=== PATIENT | female | born 1965 | race Caucasian/White ===

== ENCOUNTER 2020-02-11 12:37 | Observation (INO) ==
--- NOTE | 2020-02-11 13:36 | Emergency Department Note ---
Impression & Plan SOB (shortness of breath), Facial edema, Seroma after procedure, Hx of cervical spine surgery ED Provider Note NAME: GUSTAVO DEGROOT AGE: 54 SEX: F : 1965 ARRIVES VIA: Walk-In INFORMANT: [Patient][[facility]] ED PROVIDER(S): [Agapito Yang MD] CHIEF COMPLAINT: Lip swelling and pain HISTORY OF PRESENT ILLNESS: The patient is a 54-year-old female presents to the ER with about 24 hours if not longer of left upper lip swelling. The patient states that she noticed the lip swelling yesterday morning when she awoke. She has tried Benadryl without relief. The Benadryl makes her sleepy and kind of foggy. The patient states that the left upper lip is painful and sarmiento and the pain is a 7/10. She feels thirsty. She did have a cervical fusion surgery about 5 days ago. They did an anterior approach. The patient did notice an ulcer on her left upper inner lip. This is where she has the burning pain. There has been no fever, no cough or congestion. No shortness of breath. The patient states that she went to [facility] and was told that she had findings on plain x-ray concerning for a seroma or hematoma, she was referred to this ED. The patient states that she can swallow although it is difficult because of the pain from the surgery. She does admit that she is not eating and drinking enough. The lip swelling has not improved at all with the Benadryl. She has no history of anything similar. She thought her left face was slightly droopy as well. REVIEW OF SYSTEMS: See HPI for pertinent positives and negatives. A total of ten systems were reviewed and were otherwise negative. PMHx/PSHx: See Below SOCIAL HISTORY: See Below. PHYSICAL EXAM: GENERAL: Patient is in no acute distress. HEENT: No acute trauma, normocephalic atraumatic, mucous membranes dry, no nasal congestion, no scleral icterus. The patient's left upper lip is edematous and there is an ulcer on the inner side of this lip. She has poor dentition in general. There is no uvular edema, her airway seems patent. There is a subtle left facial droop but this appears to be from the edema itself. NECK: No stridor, no adenopathy, no meningismus, trachea is midline. She does have on a [place] J collar that she was able to remove. Her left anterior neck cervical incision looks to be healing well. There is some surrounding erythema consistent with what seems like a contact reaction from her procedure. LUNGS: Clear to auscultation bilaterally, no wheeze, no rhonchi, breath sounds equal. HEART: Mildly tachycardic, regular rhythm, no murmurs. ABDOMEN: Soft, nontender, bowel sounds positive, no hernias, no peritonitis. EXTREMITIES: No cyanosis or edema, full range of motion of all the joints without pain or difficulty, no signs for acute trauma. NEUROLOGIC: Oriented x 3, no acute motor or sensory deficits, no focal weakness. No extremity drift or cerebellar dysfunction. No speech slur. SKIN: No rash, no jaundice, no diaphoresis. DIFFERENTIAL DIAGNOSIS: Infection, dehydration, metabolic abnormality, hypo/hyperglycemia, stroke, TIA, seroma or hematoma, wound infection, electrolyte disturbance, anemia, hypoxia, cardiac sources, intracerebral event, toxicologic, neurologic, as well as other pathologies. EMERGENCY DEPARTMENT COURSE/PROCEDURES: ECG: Indication was shortness of breath. The EKG shows a normal sinus rhythm with a rate of 87. There is some baseline artifact. There is no ST elevation, no PVCs. QTC is 454. Continuous Cardiac Monitoring: An order was placed for continuous cardiac monitoring. The monitor shows a rate of 85 with normal sinus rhythm. MEDICAL DECISION MAKING: There is no leukocytosis or concerning anemia. There is a normal platelet count. No significant electrolyte abnormality or kidney failure. Alk phos somewhat elevated, the remaining liver enzymes are unremarkable. Chest film shows some potential atelectasis at the bases, no pneumonia, no CHF or pneumothorax. Brain CT shows no acute bleed or mass-effect. CT of the soft tissues of the neck does show a seroma/hematoma. Infection was questioned. There was no airway compromise. The patient on exam did have some left upper lip swelling. There was an ulcer on the underside of this lip. Her cervical incision looked to be healing without signs of infection. She was not wheezing, there was no stridor. She was not hypoxic or febrile. Patient was given IV saline for hydration. She is currently resting comfortably. I spoke to the patient's spinal surgeon about the findings on CT and about the patient's presentation. Hospitalization/observation was felt warranted. The patient may in fact require drainage of her seroma/hematoma. She was not felt safe for discharge given the facial edema. In short, I am not certain the facial edema is from her surgery. It is possible that she has a herpetic lesion on the underside of her lip causing the edema. Possibly, her symptoms are the result of both. The patient is aware of her findings, case management has been involved. Past Med/Surg History Medical History Anxiety Diverticular disease DJD (degenerative joint disease) GERD (gastroesophageal reflux disease) Hyperlipidemia Hypertension IBS (irritable bowel syndrome) Migraine Mitral valve prolapse mild MR directed centrally per 08/2019 ECHO Osteoarthritis Osteoporosis Primary biliary cirrhosis stage 1, follows with GI (Dr. Brenner/Yvette) Sciatic nerve pain Spinal stenosis SVT (supraventricular tachycardia) no recent issues/follows with cardiology (Dr. Starr) Surgical History Fusion of spine L4-S1 decompression/fusion: 08/11/14: Grade view 2, MAC#[address] 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 Beliefs That Will Affect Care: None Current Living Situation: Spouse Other Information That Helps Us Care for You: No Feels Safe at Home: Yes Safety Concerns: Feels Safe At This Time Smoking Status: Never smoker Second Hand Exposure: No ; Hx Alcohol Use: Yes Alcohol type: wine Hx Substance Use: No Allergies Allergies Allergy/AdvReac Type Severity Reaction Status Date / Time acetaminophen [From Percocet] Allergy Intermediate Rash Verified 02/11/20 14:52 dexamethasone Allergy Intermediate Hypertensio Verified 02/11/20 14:52 n oxycodone [From Percocet] Allergy Intermediate Rash Verified 02/11/20 14:52 metaxalone Allergy Mild Rash Verified 02/11/20 14:52 adhesive Allergy Unknown Itchy rash Verified 02/11/20 14:52 tetracycline Allergy Unknown Rash Verified 02/11/20 14:52 latex Allergy Rash Verified 02/11/20 14:52 pregabalin AdvReac Intermediate Hallucinati Verified 02/11/20 14:52 ons Home Meds Home Medications Medication Instructions Recorded Confirmed aspirin [Aspir-81] 81 mg PO PM 01/16/20 02/11/20 [id number] 1 cap PO Q6H PRN 01/16/20 02/11/20 [Fiorinal] dicyclomine 20 mg PO TID PRN 01/16/20 02/11/20 duloxetine [Cymbalta] 60 mg PO BID 01/16/20 02/11/20 lamotrigine [Lamictal] 200 mg PO BID 01/16/20 02/11/20 lorazepam [Ativan] 1 mg PO TID 01/16/20 02/11/20 methocarbamol 1,000 mg PO TID 01/16/20 02/11/20 pantoprazole [Protonix] 40 mg PO BID 01/16/20 02/11/20 pramipexole [Mirapex] 0.125 mg PO HS 01/16/20 02/11/20 ursodiol 300 mg PO QID 01/16/20 02/11/20 acetaminophen [Tylenol Extra 1,000 mg PO Q6H PRN 02/11/20 02/11/20 Strength] diphenhydramine HCl [Benadryl] 25 mg PO Q6H PRN 02/11/20 02/11/20 meclizine 12.5 mg PO TID PRN 02/11/20 02/11/20 nitroglycerin 0.4 mg SUBLINGUAL DIRECTED PRN 02/11/20 02/11/20 simvastatin 10 mg PO DAILY 02/11/20 02/11/20 Results & Data (ED) Vital Signs Vital Signs - 24 hr 02/11/20 12:40 02/11/20 13:48 02/11/20 16:00 Temperature 36.8 C Temperature Source Oral Pulse Rate 112 H Pulse Rate [Finger] 88 75 Respiratory Rate 18 16 18 Respiratory Depth Normal Blood Pressure 135/87 Blood Pressure [Right Arm] 116/73 144/91 H Blood Pressure Mean 103 Blood Pressure Mean [Right Arm] 87 108 Pulse Oximetry 97 96 97 Oxygen Delivery Method Room Air Room Air Room Air Sepsis Recent Fever Within 48 Hours No Sepsis New/Unexplained Change in Mental Status No Sepsis Action Taken by Nursing No Action Required Home Medications Current Medication List: was personally reviewed by me Laboratory Data Attestation: I reviewed the patient's lab results. Result diagrams: 02/11/20 13:50 02/11/20 13:50 Lab Results 02/11/20 02/11/20 Range/Units 13:50 13:50 WBC 9.82 (4.8-10.8) K/uL RBC 4.14 L (4.2-5.4) M/uL Hgb 12.7 (12.0-16.0) g/dL Hct 39.3 (37-47) % MCV 94.9 (80-100) fL MCH 30.7 (25-34) pg MCHC 32.3 (32-36) g/dL RDW Std Deviation 49.6 H (36.4-46.3) fL RDW Coeff of Ulisses 14.3 (11.5-14.5) % Plt Count 353 (130-400) K/uL MPV 9.6 (7.4-10.4) fL Immature Gran % (Auto) 0.4 % Neut % (Auto) 86.8 % Lymph % (Auto) 11.0 % Fountain % (Auto) 1.1 % Eos % (Auto) 0.5 % Baso % (Auto) 0.2 % Immature Gran # (Auto) 0.04 H (0.00-0.02) K/uL Neut # (Auto) 8.52 H (1.4-6.5) K/uL Lymph # (Auto) 1.08 L (1.2-3.4) K/uL Fountain # (Auto) 0.11 (0.11-0.59) K/uL Eos # (Auto) 0.05 (0-0.5) K/uL Baso # (Auto) 0.02 (0-0.2) K/uL Sodium 140 (136-145) mmol/L Potassium 3.5 (3.5-5.1) mmol/L Chloride 111 H (98-107) mmol/L Carbon Dioxide 21 (21-32) mmol/L Anion Gap 8.0 (3-11) BUN 18 (7-18) mg/dl Creatinine 1.11 (0.6-1.2) mg/dl Est Cr Clr Drug Dosing 67.9 ml/min Est GFR ( Amer) 64.7 Est GFR (Non-Af Amer) 55.9 BUN/Creatinine Ratio 16.0 (10-20) Glucose 123 H (70-99) mg/dl Calcium 9.2 (8.5-10.1) mg/dl Magnesium 2.4 (1.8-2.4) mg/dl Total Bilirubin 0.3 (0.2-1) mg/dl AST 16 (15-37) U/L ALT 32 (12-78) U/L Alkaline Phosphatase 253 H (45-117) U/L Total Protein 7.4 (6.4-8.2) gm/dl Albumin 3.5 (3.4-5.0) gm/dl Globulin 3.9 (2.5-4.0) gm/dl Albumin/Globulin Ratio 0.9 (0.9-2) Administered Medications Sodium Chloride (Nss 1000ml) 1,000 mls @ 50 mls/hr IV .Q20H WILLIAM Stop: 03/12/20 18:29 Last Admin: 02/11/20 18:41 Dose: 50 mls/hr Documented by: [id number] Ioversol (Optiray 320 100ml) 94 ml IV ONCE PRN PRN Reason: Interaction Checking Stop: 02/15/20 14:53 Last Admin: 02/11/20 14:55 Dose: 94 ml Documented by: [id number] Oxycodone HCl (Roxicodone Immediate Rel) 5 - 10 mg PO Q6H PRN PRN Reason: Pain Stop: 02/25/20 18:27 Last Admin: 02/11/20 18:47 Dose: 10 mg Documented by: [id number] Discontinued Medications Sodium Chloride (Nss 1000ml) 1,000 mls @ 999 mls/hr IV .Q1H1M WILLIAM Stop: 02/11/20 14:45 Last Infusion: 02/11/20 15:08 Dose: 0 mls/hr Documented by: [id number] Admin: 02/11/20 14:00 Dose: 999 mls/hr Documented by: [id number] Imaging Data Radiologist's Impression: XR chest 1V portable CLINICAL HISTORY: weakness COMPARISON STUDY: Chest radiograph July 27, 2014. FINDINGS: Anterior cervical spine fusion is incidentally noted. There is no pneumothorax or pleural effusion. Cardiac size is normal. Mediastinal contours are normal. There is suspected minimal left basilar airspace opacity. There may be minimal right basilar opacity. There is no lobar consolidation. IMPRESSION: Suspected mild bibasilar opacities which may reflect an infectious process or atelectasis. Radiographic follow up to ensure resolution is recommended. CT head/brain wo con CLINICAL HISTORY: Acute change in neurological status. Possible stroke. COMPARISON STUDY: No previous studies for comparison. TECHNIQUE: Axial CT of the brain is performed from the vertex to the skull base. IV contrast was not administered for this examination. A dose lowering technique was utilized adhering to the principles of ALARA. CT DOSE: 638.56 mGycm FINDINGS: No intra or extra-axial mass lesions are visualized. There is no CT evidence of acute cortical infarction. There is no evidence of midline shift. There is no acute hemorrhage. No calvarial fractures are visualized. There are patchy white matter hypodensities likely on a small vessel basis. There is no evidence of pathologic ventricular dilatation. There is opacification of a right posterior ethmoid air cell IMPRESSION: No acute intracranial findings CT soft tissue neck w con CT DOSE: 345.58 mGycm CLINICAL HISTORY: Neck pain status post recent surgery. Possible hematoma. TECHNIQUE: Helical images were acquired during intravenous administration of 94 cc of Optiray 320. A dose lowering technique was utilized adhering to the principles of ALARA. COMPARISON STUDY: None. FINDINGS: There is respiratory motion artifact. There are no apical masses. No thyroid masses are visualized. No salivary gland masses are visualized. There are multiple cervical lymph nodes present. The largest is located in the right paratracheal region measuring 9 mm. These nodes are statistically reactive There are postsurgical changes within the cervical spine at the C4-C7 level. Th ere is a prevertebral fluid collection at the surgical level, and extending cephalad to the C2 level. This contains small air bubbles. On the right, the fluid collection extends laterally to abut the posterior thyroid. The fluid collection is retroesophageal. This collection is likely postsurgical. Infection cannot be excluded and this needs to be correlated clinically. Evaluation of this collection is somewhat limited due to metallic artifact from the spinal surgery There is no evidence of airway compromise. IMPRESSION: 1. C4-C7 postsurgical changes with secondary artifact due to metallic hardware 2. Prevertebral fluid collection at the surgical level and extending cephalad to the C2 level. There is also asymmetric extension of the fluid collection to the right of midline to abut the posterior aspect of the right thyroid. This collection is likely postsurgical. The collection contains small air bubbles, and infection cannot be excluded. This will need to be correlated clinically. 3. No evidence of airway compromise Blood Pressure Blood Pressure Findings: Elevated blood pressure Blood Pressure Disposition: further management by hospitalist Discharge Plan Visit Data *Final* Discharge Date/Time: 02/11/20 17:23 Chief Complaint: Abnormal Labs/Diagnostic Testing Stated Complaint: JOYCELYN JACI SENT,ABNORMALXRAY ED Provider: Agapito Yang Discharge Problem: SOB (shortness of breath), Facial edema, Seroma after procedure, Hx of cervical spine surgery Patient Disposition: Admitted As Inpatient Condition: Good Discharge Instructions Interventions: ED Discharge Assessment Last Done: 02/11/20 17:23
[2020-02-11] MEDS ORDERED: SODIUM CHLORIDE 0.9% 1000ML 1,000 ML IV SCH (13:45)
--- NOTE | 2020-02-11 13:51 | XRay Report ---
XR chest 1V portable CLINICAL HISTORY: weakness COMPARISON STUDY: Chest radiograph July 27, 2014. FINDINGS: Anterior cervical spine fusion is incidentally noted. There is no pneumothorax or pleural e ffusion. Cardiac size is normal. Mediastinal contours are normal. There is suspected minimal left bas ilar airspace opacity. There may be minimal right basilar opacity. There is no lobar consolidation. IMPRESSION: Suspected mild bibasilar opacities which may reflect an infectious process or atelectasi s. Radiographic follow up to ensure resolution is recommended. ACT 112: Negative or not required by law. Electronically signed by: Scott Thrasher M.D. 02/11/2020 1:50 PM
[2020-02-11 14:07] LABS: Basophils # (auto) 0.02 K/uL (0-0.2); Basophils % (auto) 0.2 %; Eosinophils # (auto) 0.05 K/uL (0-0.5); Eosinophils % (auto) 0.5 %; Hematocrit (blood only) 39.3 % (37-47); Hemoglobin 12.7 g/dL (12.0-16.0); Immature Granulocytes # (auto) 0.04 K/uL (0.00-0.02); Immature Granulocytes % (auto) 0.4 %; Lymphocytes # (auto) 1.08 K/uL (1.2-3.4); Mean Corpuscular Hemoglobin 30.7 pg (25-34); Mean Corpuscular Hgb Conc 32.3 g/dL (32-36); Mean Corpuscular Volume 94.9 fL (80-100); Mean Platelet Volume 9.6 fL (7.4-10.4); Monocytes # (auto) 0.11 K/uL (0.11-0.59); Monocytes % (auto) 1.1 %; Neutrophils # (auto) 8.52 K/uL (1.4-6.5); Neutrophils % (auto) 86.8 %; Platelet Count 353 K/uL (130-400); RDW Coefficient of Variation 14.3 % (11.5-14.5); RDW Standard Deviation 49.6 fL (36.4-46.3); Red Blood Count 4.14 M/uL (4.2-5.4); White Blood Count 9.82 K/uL (4.8-10.8)
[2020-02-11 14:26] LABS: Albumin Level 3.5 gm/dl (3.4-5.0); Calcium 9.2 mg/dl (8.5-10.1); Creatinine Clr Calc Pharmacy 67.9 ml/min; Est GFR (African American) 64.7; Est GFR (Non-African American) 55.9; Magnesium 2.4 mg/dl (1.8-2.4); Potassium 3.5 mmol/L (3.5-5.1)
[2020-02-11 14:29] LABS: Albumin Globulin Ratio 0.9 (0.9-2); Bilirubin,Total 0.3 mg/dl (0.2-1); Globulin 3.9 gm/dl (2.5-4.0); Total Protein 7.4 gm/dl (6.4-8.2)
[2020-02-11] MEDS ORDERED: IOVERSOL 100ml IV PRN (14:54)
--- NOTE | 2020-02-11 15:09 | CT Scan Report ---
CT head/brain wo con CLINICAL HISTORY: Acute change in neurological status. Possible stroke. COMPARISON STUDY: No previous studies for comparison. TECHNIQUE: Axial CT of the brain is performed from the vertex to the skull base. IV contrast was not administered for this examination. A dose lowering technique was utilized adhering to the principles of ALARA. CT DOSE: 638.56 mGycm FINDINGS: No intra or extra-axial mass lesions are visualized. There is no CT evidence of acute cortical infarc tion. There is no evidence of midline shift. There is no acute hemorrhage. No calvarial fractures ar e visualized. There are patchy white matter hypodensities likely on a small vessel basis. There is no evidence of pathologic ventricular dilatation. There is opacification of a right posterior ethmoid air cell IMPRESSION: No acute intracranial findings ACT 112: Negative or not required by law. Electronically signed by: Eliceo Shirley M.D. 02/11/2020 3:08 PM
--- NOTE | 2020-02-11 15:17 | CT Scan Report ---
CT soft tissue neck w con CT DOSE: 345.58 mGycm CLINICAL HISTORY: Neck pain status post recent surgery. Possible hematoma. TECHNIQUE: Helical images were acquired during intravenous administration of 94 cc of Optiray 320. A dose lowering technique was utilized adhering to the principles of ALARA. COMPARISON STUDY: None. FINDINGS: There is respiratory motion artifact. There are no apical masses. No thyroid masses are visualized. No salivary gland masses are visualized. There are multiple cervical lymph nodes present. The largest is located in the right paratracheal reg ion measuring 9 mm. These nodes are statistically reactive There are postsurgical changes within the cervical spine at the C4-C7 level. There is a prevertebral fluid collection at the surgical level, and extending cephalad to the C2 level. This contains small a ir bubbles. On the right, the fluid collection extends laterally to abut the posterior thyroid. The f luid collection is retroesophageal. This collection is likely postsurgical. Infection cannot be exclu ded and this needs to be correlated clinically. Evaluation of this collection is somewhat limited due to metallic artifact from the spinal surgery There is no evidence of airway compromise. IMPRESSION: 1. C4-C7 postsurgical changes with secondary artifact due to metallic hardware 2. Prevertebral fluid collection at the surgical level and extending cephalad to the C2 level. There is also asymmetric extension of the fluid collection to the right of midline to abut the posterior as pect of the right thyroid. This collection is likely postsurgical. The collection contains small air bubbles, and infection cannot be excluded. This will need to be correlated clinically. 3. No evidence of airway compromise ACT 112: Negative or not required by law. Electronically signed by: Eliceo Shirley M.D. 02/11/2020 3:16 PM
[2020-02-11] MEDS ORDERED: ONDANSETRON INJ 2 MG/ML 2 ML VIAL IV PRN (18:26)
[2020-02-11] MEDS ORDERED: BUTALBITAL/ASPIRIN/CAFFEINE 1 TAB TAB PO PRN (18:30)
[2020-02-11] MEDS ORDERED: DICYCLOMINE HCL 10 MG CAP PO PRN (18:30)
[2020-02-11] MEDS ORDERED: NITROGLYCERIN 0.6 MG/1 TAB 100 TAB BTL SL PRN (18:30)
[2020-02-11] MEDS: SODIUM CHLORIDE 0.9% 1000ML 1,000 ML IV SCH (18:41)
[2020-02-11] MEDS: OXYCODONE HCL IR 5 MG TAB (IMMEDIATE RELEASE) PO PRN (18:47)
[2020-02-11] MEDS ORDERED: NITROGLYCERIN SL 0.4 MG/TAB TAB SL PRN (19:15)
[2020-02-11] MEDS: DULOXETINE HCL 60 MG CAP PO SCH (21:13)
[2020-02-11] MEDS: lamoTRIgine 100 MG TAB PO SCH (21:13)
[2020-02-11] MEDS: ursodioL 300 MG CAP PO SCH (21:13)
[2020-02-11] MEDS: METHOCARBAMOL 500 MG TABLET PO SCH (21:13)
[2020-02-11] MEDS: SIMVASTATIN 10 MG TAB PO SCH (21:13)
[2020-02-11] MEDS: LORazepam 1 MG TAB PO SCH (21:13)
[2020-02-11] MEDS: PRAMIPEXOLE DIHYDROCHLO 0.25 MG TAB PO SCH (21:14)
[2020-02-11] MEDS: HYDROmorphone INJ 0.5 MG/0.5 ML SYR IV PRN (23:42)
[2020-02-12] MEDS: OXYCODONE HCL IR 5 MG TAB (IMMEDIATE RELEASE) PO PRN ×3 (02:05→19:10)
[2020-02-12] MEDS: HYDROmorphone INJ 0.5 MG/0.5 ML SYR IV PRN (07:09)
[2020-02-12] MEDS: LORazepam 1 MG TAB PO SCH ×3 (08:24→20:06)
[2020-02-12] MEDS: DULOXETINE HCL 60 MG CAP PO SCH ×2 (08:25→20:06)
[2020-02-12] MEDS: ursodioL 300 MG CAP PO SCH ×4 (08:25→20:06)
[2020-02-12] MEDS: lamoTRIgine 100 MG TAB PO SCH ×2 (08:25→20:06)
[2020-02-12] MEDS: METHOCARBAMOL 500 MG TABLET PO SCH ×3 (08:25→20:06)
[2020-02-12] MEDS ORDERED: DEXAMETHASONE SOD PHOSPHATE 8 MG in SYRINGE 0 ML IV ONE (08:30)
--- NOTE | 2020-02-12 13:49 | History & Physical Report ---
Date of Service February 12, 2020 Assessment & Plan (1) Hx of cervical spine surgery: At this time we will go with the liquid diet. I feel we can continue observation and avoid repeat surgery. I will have her continue on IV Decadron every 8 hours. Present on Admission?: Yes History of Present Illness Chief Complaint: Difficulty swallowing Primary Care Provider: Nicola Carorll, This is a 54-year-old female known to me who is status post revision anterior cervical decompression and fusion. She presents the emergency room with marked difficulty swallowing. This began several days after surgery. At this time she denies any shortness of breath. States that her arm symptoms are markedly impr edwardo. She does have significant soreness with swallowing. She is able to control liquids. Allergies Allergy/AdvReac Type Severity Reaction Status Date / Time acetaminophen [From Percocet] Allergy Intermediate Rash Verified 02/11/20 14:52 dexamethasone Allergy Intermediate Hypertensio Verified 02/11/20 14:52 n oxycodone [From Percocet] Allergy Intermediate Rash Verified 02/11/20 14:52 metaxalone Allergy Mild Rash Verified 02/11/20 14:52 adhesive Allergy Unknown Itchy rash Verified 02/11/20 14:52 tetracycline Allergy Unknown Rash Verified 02/11/20 14:52 latex Allergy Rash Verified 02/11/20 14:52 pregabalin AdvReac Intermediate Hallucinati Verified 02/11/20 14:52 ons Home Medications Home Medications Medication Instructions Recorded Confirmed Type aspirin [Aspir-81] 81 mg PO PM 01/16/20 02/11/20 History wurwwdxrif-[id number] 1 cap PO Q6H PRN 01/16/20 02/11/20 History [Fiorinal] dicyclomine 20 mg PO TID PRN 01/16/20 02/11/20 History duloxetine [Cymbalta] 60 mg PO BID 01/16/20 02/11/20 History lamotrigine [Lamictal] 200 mg PO BID 01/16/20 02/11/20 History lorazepam [Ativan] 1 mg PO TID 01/16/20 02/11/20 History methocarbamol 1,000 mg PO TID 01/16/20 02/11/20 History pantoprazole [Protonix] 40 mg PO BID 01/16/20 02/11/20 History pramipexole [Mirapex] 0.125 mg PO HS 01/16/20 02/11/20 History ursodiol 300 mg PO QID 01/16/20 02/11/20 History acetaminophen [Tylenol Extra 1,000 mg PO Q6H PRN 02/11/20 02/11/20 History Strength] diphenhydramine HCl [Benadryl] 25 mg PO Q6H PRN 02/11/20 02/11/20 History meclizine 12.5 mg PO TID PRN 02/11/20 02/11/20 History nitroglycerin 0.4 mg SUBLINGUAL DIRECTED PRN 02/11/20 02/11/20 History simvastatin 10 mg PO DAILY 02/11/20 02/11/20 History Past Med/Surg History Medical History Anxiety Diverticular disease DJD (degenerative joint disease) GERD (gastroesophageal reflux disease) Hyperlipidemia Hypertension IBS (irritable bowel syndrome) Migraine Mitral valve prolapse mild MR directed centrally per 08/2019 ECHO Osteoarthritis Osteoporosis Primary biliary cirrhosis stage 1, follows with GI (Dr. Brenner/Yvette) Sciatic nerve pain Spinal stenosis SVT (supraventricular tachycardia) no recent issues/follows with cardiology (Dr. 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 Her neck is supple there is no evidence of swelling. Is nontender to palpation. She has excellent strength testing the upper extremities. Results & Data Vital Signs (Past 12 Hours) Vital Signs Temp Pulse Resp BP Pulse Ox 02/12/20 06:56 36.8 C 73 16 121/77 98 Code Status & VTE Plan VTE Prophylaxis Plan VTE Prophylaxis will be ordered: Yes
[2020-02-12] MEDS: SODIUM CHLORIDE 0.9% 1000ML 1,000 ML IV SCH (14:25)
[2020-02-12] MEDS: DEXAMETHASONE SOD PHOSPHATE 8 MG in SYRINGE 0 ML IV SCH ×2 (14:26→22:37)
--- NOTE | 2020-02-12 19:13 | Electrocardiogram Report ---
Test Reason : Blood Pressure : / mmHG Vent. Rate : 087 BPM Atrial Rate : 087 BPM P-R Int : 140 ms QRS Dur : 078 ms QT Int : 378 ms P-R-T Axes : 038 009 -10 degrees QTc Int : 454 ms Normal sinus rhythm Nonspecific T wave abnormality Abnormal ECG When compared with ECG of 27-JUL-2014 09:21, Vent. rate has increased BY 32 BPM Questionable change in QRS axis Inverted T waves have replaced nonspecific T wave abnormality in Inferior leads QT has lengthened Confirmed by Price Hodges ([id number]) on 02/12/2020 7:12:55 PM Referred By: REFERRED SELF Confirmed By:Price Hodges
[2020-02-12] MEDS: SIMVASTATIN 10 MG TAB PO SCH (20:06)
[2020-02-12] MEDS: PRAMIPEXOLE DIHYDROCHLO 0.25 MG TAB PO SCH (20:06)
[2020-02-13] MEDS: OXYCODONE HCL IR 5 MG TAB (IMMEDIATE RELEASE) PO PRN ×2 (03:02→09:14)
[2020-02-13] MEDS: DEXAMETHASONE SOD PHOSPHATE 8 MG in SYRINGE 0 ML IV SCH ×2 (06:16→13:32)
[2020-02-13] MEDS: DULOXETINE HCL 60 MG CAP PO SCH (09:08)
[2020-02-13] MEDS: ursodioL 300 MG CAP PO SCH ×2 (09:08→13:31)
[2020-02-13] MEDS: lamoTRIgine 100 MG TAB PO SCH (09:08)
[2020-02-13] MEDS: METHOCARBAMOL 500 MG TABLET PO SCH ×2 (09:09→13:32)
[2020-02-13] MEDS: LORazepam 1 MG TAB PO SCH ×2 (09:14→13:32)
[2020-02-13] MEDS: SODIUM CHLORIDE 0.9% 1000ML 1,000 ML IV SCH (09:15)
--- NOTE | 2020-02-13 12:28 | Discharge Summary ---
Date of Service February 13, 2020 Admission HPI Per Admitting Provider This is a 54-year-old female known to me who is status post revision anterior cervical decompression and fusion. She presents the emergency room with marked difficulty swallowing. This began several days after surgery. At this time she denies any shortness of breath. States that her arm symptoms are markedly improved. She does have significant soreness with swallowing. She is able to control liquids. Principal Diagnosis Status post cervical fusion with postop seroma Discharge Data Allergies Allergy/AdvReac Type Severity Reaction Status Date / Time acetaminophen [From Percocet] Allergy Intermediate Rash Verified 02/11/20 14:52 dexamethasone Allergy Intermediate Hypertensio Verified 02/11/20 14:52 n oxycodone [From Percocet] Allergy Intermediate Rash Verified 02/11/20 14:52 metaxalone Allergy Mild Rash Verified 02/11/20 14:52 adhesive Allergy Unknown Itchy rash Verified 02/11/20 14:52 tetracycline Allergy Unknown Rash Verified 02/11/20 14:52 latex Allergy Rash Verified 02/11/20 14:52 pregabalin AdvReac Intermediate Hallucinati Verified 02/11/20 14:52 ons Consultations 02/11/20 15:41 ED Decision to Admit Stat Ordered Studies 02/11/20 13:33 CT soft tissue neck w con Stat 02/11/20 13:36 CT head/brain wo con Stat Hospital Course (1) Herniation of cervical intervertebral disc with radiculopathy: Patient presents with difficulty swallowing was admitted to the hospital for observation. She tolerated IV Decadron every 8 hours and had marked improvement of her swallowing and pain. Arm symptoms are improved. Functions are improved. On exam she has asked strength testing supple neck Total Time Total Time Spent Total Time Spent (In Minutes): 20 minutes Discharge Plan Discharge Items Patient Disposition: Home - Self-Care Reason For Visit: CERVICAL SEROMA Discharge Diagnosis: Cervical seroma Condition on Discharge: Good Activity: As commented below Non-emergency contact: Primary Care Provider Call non-emergency contact if: you have any medication questions Follow-up/Referrals: Nicola Carroll DO [Primary Care Provider] - Diet: Regular Addtl Attending Provider Instructions: ACTIVITY RECOMMENDATIONS: SELF CARE INSTRUCTIONS AFTER CERVICAL FUSIONS 1. No smoking. Smoking drastically decreases the chance of a solid fusion. 2. No bending, lifting more than 5 pounds, or twisting (roll like a log when turning in bed). 3. You may shower 3 days after surgery. Thoroughly dry wound. Do not soak in the tub. 4. Cervical collar: Must be worn at all times including sleeping. You may remove the brace only to bath, eat and if you are sitting in a recliner. 5. Please walk as much as you can for exercise. Gradually increase the distance that you walk as your endurance increases. SPECIAL CARE INSTRUCTIONS: VERY IMPORTANT TO READ AND REVIEW A. Do not take any anti-inflammatory medications (i.e. Indocin, Advil, Aspirin, Naprosyn, Aleve, Motrin, etc.) as these may inhibit the chance of a solid fusion. Tylenol is okay to take. B. Your surgical incision has been closed with a cosmetic suture under the skin that will dissolve in about 6 weeks. In 14 days, you can use a pair of clean scissors and cut the suture that is left outside of the skin at the ends of your incision. C. Complications are uncommon, but please contact us if you have any signs or symptoms of: 1. wound infection (fever higher than 102.5 degrees F, redness, separation of wound, drainage, or increasing pain from the incision) 2. blood clots in legs (pain, swelling, redness and warmth in legs) 3. urinary tract infection (fever higher than 102.5 degrees, burning upon urination or increased frequency of urination) 4. nerve problems (inability to walk on your toes or heels, numbness, loss of bowel or bladder control) 5. any other symptoms that concern you. D. Please call the office at if you have any concerns or questions about your operation or recovery. MANAGING PAIN AFTER SPINAL SURGERY 1. Narcotic medication is intended for short-term use and will be provided for surgical pain. Surgical pain usually lasts for a period of 4-6 weeks. Narcotic medication includes Percocet, Vicodin, Darvocet, Tylenol #3 or Lortab. 2. Longer-term pain is more appropriately treated with non-narcotic medication such as Tylenol ES. 3. Muscle spasm is not appropriately treated with narcotics. Muscle relaxers such as Soma, Flexeril or Skelaxin can be used along with Tylenol ES. 4. Remember that we all live with some "aches and pains". This is not unusual or uncommon after an injury or as we get older. 5. We will provide appropriate medication within the normal guidelines of their prescribed use. We will also be very cautious and aware of potential abuse and extended duration of patients' medication needs. 6. Please allow 2-3 days to process refills. Prescriptions will not be mailed but must be picked up at the office. FOLLOW UP VISIT: Keep your scheduled follow-up appointment. Any questions, please call the office at . Pending Studies at Discharge: No Stand-Alone Forms: [facility], Smoking Cessation Medications and DC Order Prescriptions: New methylprednisolone [Medrol (Vinny)] 4 mg tablets,dose pack 4 mg PO DAILY Qty: 21 RF: 0 Continued methocarbamol 500 mg Tablet 1,000 mg PO TID RF: 0 lamotrigine [Lamictal] 200 mg Tablet 200 mg PO BID RF: 0 aspirin [Aspir-81] 81 mg Tablet,Delayed Release (Dr/Ec) 81 mg PO PM RF: 0 dicyclomine 20 mg Tablet 20 mg PO TID PRN (Reason: Abdominal Pain) RF: 0 pantoprazole [Protonix] 40 mg Tablet,Delayed Release (Dr/Ec) 40 mg PO BID RF: 0 pramipexole [Mirapex] 0.125 mg Tablet 0.125 mg PO HS RF: 0 lorazepam [Ativan] 1 mg Tablet 1 mg PO TID RF: 0 duloxetine [Cymbalta] 60 mg Capsule,Delayed Release(Dr/Ec) 60 mg PO BID RF: 0 [id number]-gozmdnqv [Fiorinal] 50-325-40 mg Capsule 1 cap PO Q6H PRN (Reason: Migraine Headache) RF: 0 ursodiol 300 mg Capsule 300 mg PO QID RF: 0 simvastatin 10 mg tablet 10 mg PO DAILY RF: 0 acetaminophen [Tylenol Extra Strength] 500 mg Tablet 1,000 mg PO Q6H PRN (Reason: Pain) RF: 0 meclizine 25 mg tablet 12.5 mg PO TID PRN (Reason: Dizziness) RF: 0 diphenhydramine HCl [Benadryl] 25 mg Capsule 25 mg PO Q6H PRN (Reason: Allergic Reaction) RF: 0 nitroglycerin 0.4 mg Tablet, Sublingual 0.4 mg sublingual DIRECTED PRN (Reason: Chest Pain) RF: 0 Discharge Orders: Discharge Order (Routine); Ordered 02/13/20 Ordered By: Nicola Spaulding Admission Data Admit Date/Time: 02/11/20 16:45 Attending Provider: Nicola Spaulding Admit Provider: Nicola Spaulding Primary Care Provider: Nicola Carroll Other Providers: Nicola Spaulding
== END 2020-02-13 14:05 | disposition home or self-care (01) ==
LOC: ED 12:37 → 3E 16:45 → INTOOBSV 16:45 → 3E 17:23

== ENCOUNTER 2020-11-01 06:01 | Inpatient (IN) ==
--- NOTE | 2020-10-27 14:12 | Anesthesiology Consultation ---
Date of Service October 27, 2020 Assessment & Plan (1) Encounter for pre-operative examination: Cardiology visit 09/29/2020: "Clinically patient is not having any symptoms to suggest ongoing clinical angina and her chest discomfort is very much atypical most probably noncardiac/nonischemic in origin-continue current care. Blood pressures adequately controlled will continue same medications and close clinical monitoring. GONZALEZ is likely multifactorial, there is no clinical collin dence of fluid overload to suggest heart failure and so will continue same medications and close clinical monitoring." Chart Review Chart Review: Acceptable Risk for Surgery and Patient seen in Pre Admission Testing Teaching & Discussion Instructed NPO after midnight before surgery, except medications with 15 cc of water. Medication instructions provided according to the PAT guidelines. History Surgery Operation Date: 11/01/20 07:45 Proposed Procedures p L3-4 Decompression Fusion, L4-S1 Hardware Removal Spinal Cord Monitoring - Nicola Spaulding DO Height/Weight Height: 5 ft 6.5 in Weight: 88.451 kg Allergies Allergy/AdvReac Type Severity Reaction Status Date / Time acetaminophen [From Percocet] Allergy Intermediate Rash Verified 10/05/20 09:48 dexamethasone Allergy Intermediate Hypertensio Verified 10/05/20 09:48 n oxycodone [From Percocet] Allergy Intermediate Rash Verified 10/05/20 09:48 metaxalone Allergy Mild Rash Verified 10/05/20 09:48 adhesive Allergy Unknown Itchy rash Verified 10/05/20 09:48 tetracycline Allergy Unknown Rash Verified 10/05/20 09:48 latex Allergy Rash Verified 10/05/20 09:48 pregabalin AdvReac Intermediate Hallucinati Verified 10/05/20 09:48 ons Medications Home Medications Medication Instructions Recorded Confirmed Last Taken aspirin [Aspir-81] 81 mg PO PM 01/16/20 10/27/20 02/10/20 [id number]-[id number] 1 cap PO Q6H PRN 01/16/20 10/27/20 Unknown [Fiorinal] dicyclomine 20 mg PO TID PRN 01/16/20 10/27/20 02/11/20 duloxetine [Cymbalta] 60 mg PO BID 01/16/20 10/27/20 02/11/20 lamotrigine [Lamictal] 200 mg PO BID 01/16/20 10/27/20 02/11/20 lorazepam [Ativan] 1 mg PO TID 01/16/20 10/27/20 02/11/20 methocarbamol 1,000 mg PO TID 01/16/20 10/27/20 02/11/20 pantoprazole [Protonix] 40 mg PO BID 01/16/20 10/27/20 02/11/20 pramipexole [Mirapex] 0.125 mg PO HS 01/16/20 10/27/20 02/10/20 ursodiol 300 mg PO QID 01/16/20 10/27/20 02/11/20 acetaminophen [Tylenol Extra 1,000 mg PO Q6H PRN 02/11/20 10/27/20 02/10/20 Strength] 1000 mg diphenhydramine HCl [Benadryl] 25 mg PO Q6H PRN 02/11/20 10/27/20 02/11/20 50 mg meclizine 12.5 mg PO TID PRN 02/11/20 10/27/20 Unknown nitroglycerin 0.4 mg SUBLINGUAL DIRECTED PRN 02/11/20 10/27/20 Unknown ibuprofen 600 mg PO TID 08/23/20 10/27/20 Unknown metoprolol tartrate 12.5 mg PO BID 08/23/20 10/27/20 Unknown sumatriptan succinate [Imitrex 6 mg SUBCUT DAILY PRN 08/23/20 10/27/20 Unknown STATdose Pen] Past Medical History Medical History Anxiety > also very nervous about up coming spinal fusion 11/01 Diverticular disease DJD (degenerative joint disease) GERD (gastroesophageal reflux disease) History of surgical site infection AFTER NECK SURGERY FEBRUARY 2020> RESOLVED Hyperlipidemia Hypertension IBS (irritable bowel syndrome) Migraine Mitral regurgitation Mild MR, jet directed centrally per 08/2019 echo Nausea and vomiting after administration of anesthetic agent Osteoarthritis Osteoporosis Primary biliary cirrhosis stage 1, follows with GI (Dr. Brenner/Yvette) Sciatic nerve pain Seroma after procedure FEW DAYS AFTER NECK SUREGERY IN FEBRUARY 2020 Spinal stenosis SVT (supraventricular tachycardia) no recent issues/follows with cardiology (Dr. Starr) Exercise / Class Metabolic Activity II 4-5 Yardwork/Stairs/Walk up hill Past Family History Family History Father Diabetes Daughter Diabetes Sister Diabetes Brother Diabetes Past Surgical History Surgical History Fusion of spine L4-S1 decompression/fusion: 08/11/14: Grade view 2, MAC#3 at [facility] H/O cervical discectomy ROM IS LIMITED History of appendectomy History of cholecystectomy History of colonoscopy History of dilatation and curettage History of endoscopic sinus surgery x4 History of esophagogastroduodenoscopy (EGD) History of hysterectomy History of tooth extraction recently in Sep 2020 Past Anesthesia History No Family Hx of Anesthesia Complications (other than remote vague h/o father having a "reaction" once with anesthesia) Pt reports remote hx of issue with ESS in -- was not told to stop her Lasix and had pulmonary complications r/t this. Significant anxiety with surgeries. History of PONV No Hx of Motion Sickness and History of PONV Social History Smoking Status: Never smoker Hx Alcohol Use: Yes Alcohol type: wine alcohol intake frequency: holidays/special occasions only Hx Substance Use: No substance use type: does not use Review of Systems Pt denies any recent chest pain, shortness of breath, cough, fever, URI, or uncontrolled acid reflux. +fatigue, chronic. +palpitations, rare. Physical Exam Vital Signs BP: 92/60, asymptomatic. P: 59bpm SPO2: 96% RA T: 97.7 F R: 16 ENMT Mouth: no dental restorations, no chipped teeth and no loose teeth Thyromental Distance: > or= 3.5 Finger Breadths (3.5) Mallampati Class: III Neck normal visual inspection and + limited neck extension Respiratory normal respiratory effort, lungs clear to auscultation Cardiovascular RRR, no murmur, no edema Testing Laboratory Results SEE LABS FROM 09/14/20 [facility]. Other Testing EKG 09/29/20 SR @ 72bpm with low voltage, possible pulmonary disease pattern. Chest X-Ray Date: 09/14/20 Findings: + NAD Echocardiogram Date: 08/11/19 EF: 60% Normal ejection fraction. Grade 1 diastolic dysfunction. Normal RV size and function. Normal atria. Mild mitral regurgitation. The mitral valve is thickened. Mild tricuspid regurgitation. Mildly increased PASP. Normal pulmonic valve. Physiologic pulmonic regurgitation. Normal aorta.
[~2020-11-01 06:01] MED LIST: ACETAMINOPHEN 500 MG TAB PO SCH; CeleBREX 200 MG CAP PO SCH; GABAPENTIN 600 MG DOSE PO SCH; LR 15ML/HR IV SCH; ceFAZolin 2000MG 2,000 MG/15 ML SYR IV SCH
[2020-11-01] MEDS ORDERED: BACITRACIN INJ 50,000 UNIT VIAL ONE (06:54)
[2020-11-01] MEDS ORDERED: BUPIVACAINE/EPINEPHRINE 0.5% MPF 1:200,000 30 ML VIAL ONE (06:54)
[2020-11-01] MEDS ORDERED: ONDANSETRON INJ 2 MG/ML 2 ML VIAL IV PRN ×2 (07:07→11:27)
[2020-11-01] MEDS ORDERED: PROMETHAZINE HCL 6.25 MG in SODIUM CHLORIDE 0.9% 50 ML IV PRN (07:07)
[2020-11-01] MEDS ORDERED: ePHEDrine sulfate 50 MG/ML AMP IV PRN (07:07)
[2020-11-01] MEDS ORDERED: ATROPINE SULFATE 0.1 MG/ML 10ML SYR IV PRN (07:07)
[2020-11-01] MEDS ORDERED: DEXAMETHASONE SOD INJ 4 MG/ML VIAL ONE (07:09)
[2020-11-01] MEDS ORDERED: SUCCINYLCHOLINE 100MG/5ML SYR IV ONE (07:09)
[2020-11-01] MEDS ORDERED: ONDANSETRON INJ 2 MG/ML 2 ML VIAL ONE (07:09)
[2020-11-01] MEDS ORDERED: PROPOFOL IV EMULSION 10 MG/ML 20 ML VIAL IV ONE (07:09)
[2020-11-01] MEDS ORDERED: LIDOCAINE HCL 2% 2 ML VIAL/AMP(20MG/ML) INFIL ONE (07:09)
[2020-11-01] MEDS ORDERED: ROCURONIUM BROMIDE 10 MG/ML 5 ML VIAL IV ONE ×6 (07:09→09:59)
[2020-11-01] MEDS ORDERED: MIDAZOLAM HCL 1 MG/ML 2ML VIAL ONE (07:09)
[2020-11-01] MEDS ORDERED: fentaNYL citrate 100 MCG/2 ML VIAL ONE ×2 (07:10→09:35)
--- NOTE | 2020-11-01 07:39 | History & Physical Bridge Note ---
Date of Service November 01, 2020 History & Physical Bridge Note I have examined the patient, reviewed the History & Physical and in the interval since the performance of the History & Physical I have noted the following changes of clinical significance: no changes noted
--- NOTE | 2020-11-01 07:40 | History & Physical Report ---
Date of Service November 01, 2020 Assessment & Plan (1) Neurogenic claudication due to lumbar spinal stenosis: Admission and Anticipated Discharge Date Admission Date: L3-L4 decompression fusion, L4-S1 hardware removal History of Present Illness Chief Complaint: Back and leg pain Primary Care Provider: Nicola Carroll DO This is a 55-year-old female who presents with car persistent back and leg pain. After failing course of nonoperative care is here for surgical invention. Allergies Allergy/AdvReac Type Severity Reaction Status Date / Time acetaminophen [From Percocet] Allergy Intermediate Rash Verified 10/05/20 09:48 dexamethasone Allergy Intermediate Hypertensio Verified 10/05/20 09:48 n oxycodone [From Percocet] Allergy Intermediate Rash Verified 10/05/20 09:48 metaxalone Allergy Mild Rash Verified 10/05/20 09:48 adhesive Allergy Unknown Itchy rash Verified 10/05/20 09:48 tetracycline Allergy Unknown Rash Verified 10/05/20 09:48 latex Allergy Rash Verified 10/05/20 09:48 pregabalin AdvReac Intermediate Hallucinati Verified 10/05/20 09:48 ons Home Medications Medication Instructions Recorded Confirmed Type aspirin [Aspir-81] 81 mg PO PM 01/16/20 10/27/20 History cecfrlgmbh-bnjpwnm-xjjruedo 1 cap PO Q6H PRN 01/16/20 10/27/20 History [Fiorinal] dicyclomine 20 mg PO TID PRN 01/16/20 10/27/20 History duloxetine [Cymbalta] 60 mg PO BID 01/16/20 10/27/20 History lamotrigine [Lamictal] 200 mg PO BID 01/16/20 10/27/20 History lorazepam [Ativan] 1 mg PO TID 01/16/20 10/27/20 History methocarbamol 1,000 mg PO TID 01/16/20 10/27/20 History pantoprazole [Protonix] 40 mg PO BID 01/16/20 10/27/20 History pramipexole [Mirapex] 0.125 mg PO HS 01/16/20 10/27/20 History ursodiol 300 mg PO QID 01/16/20 10/27/20 History acetaminophen [Tylenol Extra 1,000 mg PO Q6H PRN 02/11/20 10/27/20 History Strength] diphenhydramine HCl [Benadryl] 25 mg PO Q6H PRN 02/11/20 10/27/20 History meclizine 12.5 mg PO TID PRN 02/11/20 10/27/20 History nitroglycerin 0.4 mg SUBLINGUAL DIRECTED PRN 02/11/20 10/27/20 History ibuprofen 600 mg PO TID 08/23/20 10/27/20 History metoprolol tartrate 12.5 mg PO BID 08/23/20 10/27/20 History sumatriptan succinate [Imitrex 6 mg SUBCUT DAILY PRN 08/23/20 10/27/20 History STATdose Pen] Past Med/Surg History Medical History (Updated 11/01/20 @ 07:39 by Nicola Spaulding DO) Anxiety > also very nervous about up coming spinal fusion 11/01 Diverticular disease DJD (degenerative joint disease) GERD (gastroesophageal reflux disease) History of surgical site infection AFTER NECK SURGERY FEBRUARY 2020> RESOLVED Hyperlipidemia Hypertension IBS (irritable bowel syndrome) Migraine Mitral regurgitation Mild MR, jet directed centrally per 08/2019 echo Nausea and vomiting after administration of anesthetic agent Osteoarthritis Osteoporosis Primary biliary cirrhosis stage 1, follows with GI (Dr. Brenner/Yvette) Sciatic nerve pain Seroma after procedure FEW DAYS AFTER NECK SUREGERY IN FEBRUARY 2020 Spinal stenosis SVT (supraventricular tachycardia) no recent issues/follows with cardiology (Dr. Starr) Surgical History Fusion of spine L4-S1 decompression/fusion: 08/11/14: Grade view 2, MAC#3 at [facility] H/O cervical discectomy ROM IS LIMITED History of appendectomy History of cholecystectomy History of colonoscopy History of dilatation and curettage History of endoscopic sinus surgery x4 History of esophagogastroduodenoscopy (EGD) History of hysterectomy History of tooth extraction recently in Sep 2020 Family History Father Diabetes Daughter Diabetes Sister Diabetes Brother Diabetes Social History Smoking Status: Never smoker Second Hand Exposure: No; Hx Alcohol Use: Yes Alcohol type: wine Hx Substance Use: No Preferred Language: Cypriot Communication Ability: Effective Dub Room Engineer Required: No Beliefs That Will Affect Care: None Current Living Situation: Spouse Feels Safe at Home: Yes Safety Concerns: Feels Safe At This Time Assistive Devices: Glasses Physical Exam Physical Exam: Patient is alert and oriented Heart regular rate and rhythm Lungs clear to auscultation
[2020-11-01] MEDS ORDERED: FLOSEAL HEMOSTATIC MATRIX 10ML TOP ONE (08:59)
[2020-11-01] MEDS ORDERED: GLYCOPYRROLATE 0.2 MG/ML VIAL ONE (09:31)
[2020-11-01] MEDS ORDERED: NEOSTIGMINE METHYLSULFATE 1 MG/ML 10ML VIAL ONE (09:31)
[2020-11-01] MEDS ORDERED: ePHEDrine sulfate 50 MG/ML SYR ONE (09:31)
--- NOTE | 2020-11-01 10:03 | Operative Report ---
Post Operative Report Pre & Post Diagnosis Operation Date: 11/01/20 07:45 Pre-Op Diagnosis: Lumbar spinal stenosis with neurogenic claudication Post-Op Diagnosis: Same I identified the patient and participated in the time-out.: Yes Procedure Operation Date: 11/01/20 07:45 Actual Procedures #1 removal of posterior instrumentation L4-5 L5-S1. #2 exploration of fusion L4-5 L5-S1. #3 lumbar decompression with bilateral medial facetectomies and foraminotomies L2-3 and L3-4. #4 posterior spinal fusion L3-4 per #5 placement posterior instrumentation L3-4 per #6 interbody fusion L3-4 per #7 placement peek cage 11 x 22 mm at L3-4. #8 placement of locally harvested morselized autograft in the posterior lateral gutters per #9 placement infuse collagen sponge, master graft in the posterior gutters and ostial amp interbody space. Surgeon Nicola Spaulding, DO Stock Replenisher Georgie Hoyos Estimated Blood Loss 100 Findings See Below The patient is 5 foot 6 inches tall weighing over 91 kg with a BMI in excess of 32. The patient's body habitus did add significant technical difficulty requiring her deepest retractors longus instruments in order to perform the procedure. This at least 25% increase to the operative time. Specimens None Indications This is a 55-year-old female who presents with above-mentioned diagnosis after failing course of nonoperative care is here for the above-mentioned procedure. Description of Procedure Patient was met with identified informed consent obtained. Patient was then taken to the operative suite underwent a patient placed in a prone position the [place] table top Terrell frame. All bony prominences well-padded eyes inspected to ensure no external pressure placed upon the. This point the lumbar spine was prepped and draped in a sterile fashion. Sharp dissection with the assistance of Bovie cautery performed down to and exposing the lamina and transverse processes of L3 and instrumentation at L4-L5 and S1 levels bilaterally. I then proceeded with the hardware bilaterally explore the fusion mass noting it to be intact and mature. Then performed a complete laminectomy of L3 pars laminectomy of L2 including bilateral medial facetectomies and foraminotomies addressing severe spinal stenosis. Pedicle screws were then placed in L3 and L4 bilaterally with assistance of fluoroscopy the proper sized jamar placed. By way of a transforaminal approach on right a complete discectomy of L3-4 was performed endplates curetted to subcortically bone and a 11 x 22 mm peek cage filled osteobone graft tapped in position. The rods were then locked in final position bilaterally. Transverse processes of L3 and L4 were burred to subcortical bleeding bone. Infuse collagen sponge master graft lobe autograft was placed in the posterior gutters. 15 round DAVIDSON drain inserted. The incision was then closed with 1 Vicryl in the fascia 2-0 Vicryl subcutaneously and 4 Monocryl for final skin closure. Steri-Strip sterile dressings placed. Patient will continue PACU stable condition. Please note spinal cord monitoring was utilized at the procedure no changes noted. Lastly Georgie Hoyos was present at the entire surgery involved the patient positioning complex portions of the surgery and final skin closure. I attest to the content of the Intraoperative Record and any orders documented therein. Any exceptions are noted below.
--- NOTE | 2020-11-01 10:13 | Fluoroscopy Report ---
FL lumbar spine 2-3V CLINICAL HISTORY: L3-L4 DECOMPRESSION AND FUSION L4-S1 HW REMOVAL COMPARISON STUDY: Lumbar spine fluoroscopic images August 11, 2014. FLUOROSCOPY TIME: 17.2 seconds. FLUOROSCOPIC IMAGES: 2 FINDINGS: Previous disc spacer L5-S1 level is noted. Interval L3-L4 discectomy with posterior decompr ession bilateral pedicle screw fusion is noted. The hardware is intact. Previous L4-S1 hardware has b een removed. IMPRESSION: Hardware removal with interval L3-L4 discectomy, posterior decompression and bilateral p edicle screw fusion. ACT 112: Negative or not required by law. Electronically signed by: Scott Thrasher M.D. 11/01/2020 10:12 AM
[2020-11-01] MEDS: fentaNYL citrate 100 MCG/2 ML VIAL IV PRN ×4 (10:28→10:55)
--- NOTE | 2020-11-01 11:05 | Anesthesiology Progress Note ---
Date of Service November 01, 2020 Anesthesia Post Procedure Vital Signs Vital Signs: Temp Pulse Pulse Resp BP Pulse Ox 11/01/20 10:40 79 16 142/94 H 99 11/01/20 10:30 79 17 147/95 H 100 11/01/20 10:20 97 H 13 124/85 98 11/01/20 10:19 36.0 C L 93 H 13 133/93 99 11/01/20 08:13 36.7 C 87 20 139/98 96 Pain Intensity Back: Pain Intensity: 7 Transfer of Care Handoff Completed per policy Notes Mental Status: alert / awake / arousable Patient Amnestic to Procedure: Yes Nausea / Vomiting: adequately controlled Pain: adequately controlled Airway Patency, RR, SpO2: stable & adequate BP & HR: stable & adequate Hydration State: stable & adequate Anesthetic Complications: no major complications apparent
[2020-11-01] MEDS ORDERED: ACETAMINOPHEN 500 MG TAB PO PRN (11:27)
[2020-11-01] MEDS ORDERED: hydrOXYzine HCl 25 MG TAB PO PRN (11:27)
[2020-11-01] MEDS ORDERED: LORazepam 0.5 MG/1 ML VIAL IV PRN (11:27)
[2020-11-01] MEDS ORDERED: BUTALBITAL/ASPIRIN/CAFFEINE 1 TAB TAB PO PRN (11:27)
[2020-11-01] MEDS ORDERED: traMADol HCL 50 MG TABLET PO PRN (11:27)
[2020-11-01] MEDS ORDERED: LORazepam 0.5 MG TAB PO PRN (11:27)
[2020-11-01] MEDS ORDERED: DICYCLOMINE HCL 20 MG TAB PO PRN (11:27)
[2020-11-01] MEDS ORDERED: DO NOT ADMINISTER PNEUMOCOCCAL VACCINE PRN (11:27)
[2020-11-01] MEDS ORDERED: DO NOT ADMINISTER FLU VACCINE PRN (11:27)
[2020-11-01] MEDS ORDERED: ACETAMINOPHEN 1,000 MG/100 ML VIAL IV PRN (11:27)
[2020-11-01] MEDS ORDERED: FAMOTIDINE 20 MG TAB PO PRN (11:27)
[2020-11-01] MEDS ORDERED: MAGNESIUM HYDROXIDE SUSP 30 ML UDC PO PRN (11:27)
[2020-11-01] MEDS ORDERED: METOCLOPRAMIDE HCL INJ 5 MG/ML 2 ML VIAL IV PRN (11:27)
[2020-11-01] MEDS ORDERED: SOD PHOSPHATE/SOD BIPHOSPHATE ENEMA 132 ML BTL PR PRN (11:27)
[2020-11-01] MEDS ORDERED: ONDANSETRON 4 MG OD TAB PO PRN (11:27)
[2020-11-01] MEDS ORDERED: diphenhydrAMINE Capsule 25 MG CAP PO PRN ×2 (11:27)
[2020-11-01] MEDS ORDERED: NITROGLYCERIN SL 0.4 MG/TAB TAB SL PRN (11:27)
[2020-11-01] MEDS ORDERED: PROMETHAZINE HCL 12.5 MG in SODIUM CHLORIDE 0.9% 50 ML IV PRN (11:27)
[2020-11-01] MEDS ORDERED: ALUMINUM/MAGNESIUM SUSP 30 ML UDC PO PRN (11:27)
[2020-11-01] MEDS ORDERED: HYDROmorphone INJ 0.5 MG/0.5 ML SYR IV PRN (11:27)
[2020-11-01] MEDS ORDERED: NALOXONE HCL 0.4 MG/1 ML VIAL/CARP IV PRN (11:27)
[2020-11-01] MEDS: HYDROmorphone INJ 1 MG/ML SYRINGE IV PRN (11:46)
[2020-11-01] MEDS: LACTATED RINGER'S 1,000 ML IV SCH ×2 (11:48→21:06)
[2020-11-01] MEDS ORDERED: MECLIZINE HCL 25 MG TAB PO PRN (12:05)
[2020-11-01] MEDS ORDERED: SUMAtriptan succinate 6 MG/0.5 ML VIAL SQ PRN (12:07)
[2020-11-01] MEDS ORDERED: LORazepam 1 MG TAB PO PRN (12:08)
[2020-11-01] MEDS: HYDROCODONE/ACETAMOPHEN 5/325MG TAB PO PRN ×2 (13:35→19:34)
[2020-11-01] MEDS: KETOROLAC TROMETHAMINE 15 MG/ML VIAL IV SCH ×2 (13:37→19:35)
[2020-11-01] MEDS ORDERED: METHOCARBAMOL 500 MG TABLET PO PRN (14:00)
--- NOTE | 2020-11-01 14:23 | Hospitalist Consultation ---
Date of Consultation November 01, 2020 Assessment & Plan (1) Neurogenic claudication due to lumbar spinal stenosis: - POD#0 L3-L4 decompression and fusion, L4-S1 hardware removal by Dr. Spaulding - activity and wound care orders as per ortho - pain control with bowel regimen - PT/OT - monitor H/H for acute blood loss anemia and transfuse blood products PRN - EBL 100 cc (2) Primary biliary cirrhosis: -Stable, no signs of decompensation -continue ursodiol (3) SVT (supraventricular tachycardia): -Heart rate controlled, continue metoprolol (4) Anxiety: -Stable, continue home medications (5) DVT prophylaxis: -TEDs/SCDs as per spine Ortho Thank you for this consultation. We will follow the patient with you during their hospital stay. You can reach a member of the [place] Hospitalist Team 26/03 via pager @ [phone]. Supervising Physician Co-Signing Physician Notes Patient doing okay postoperatively. Reports she does have significant pain at the moment. Was feeling nauseous earlier but not now. Denies any chest pain, shortness of breath or any palpitations. Denies any abdominal pain. Lucas catheter in place. DAVIDSON drain is in place as well. Continue chronic daily medications. Dynamically patient is doing fine. Currently he is on room air. I performed a history and physical examination of the patient on 11/01/20, including specifically history and physical. I have discussed the patient's management with the advanced practitioner. Please refer to the Sabra Peterson note for the documented findings and plan of care. History of Present Illness Reason for Consultation: Postop medical management Requesting Physician: Dr. Spaulding Attending Physician: Dr. Cabrera History of Present Illness 55-year-old female with PMH primary biliary cirrhosis, paroxysmal SVT, anxiety, and other problems listed below who is status post L3-L4 decompression and fusion, L4-S1 hardware removal today by Dr. Spaulding. Postoperatively, the patient is doing well. She reports her pain is well controlled. Denies lower extremity weakness, numbness, tingling. Denies chest pain or shortness of breath. No abdominal pain or nausea. Denies lightheadedness and dizziness. Lucas catheter is in place draining clear yellow urine. Allergies Allergy/AdvReac Type Severity Reaction Status Date / Time acetaminophen [From Percocet] Allergy Intermediate Rash Verified 11/01/20 08:02 dexamethasone Allergy Intermediate Hypertensio Verified 11/01/20 08:02 n oxycodone [From Percocet] Allergy Intermediate Rash Verified 11/01/20 08:02 metaxalone Allergy Mild Rash Verified 11/01/20 08:02 adhesive Allergy Unknown Itchy rash Verified 11/01/20 08:02 tetracycline Allergy Unknown Rash Verified 11/01/20 08:02 latex Allergy Rash Verified 11/01/20 08:02 pregabalin AdvReac Intermediate Hallucinati Verified 11/01/20 08:02 ons Home Medications Medication Instructions Recorded Confirmed Type aspirin [Aspir-81] 81 mg PO PM 01/16/20 11/01/20 History aufuklahoy-ephrcyq-nehzbdew 1 cap PO Q6H PRN 01/16/20 11/01/20 History [Fiorinal] dicyclomine 20 mg PO TID PRN 01/16/20 11/01/20 History duloxetine [Cymbalta] 60 mg PO BID 01/16/20 11/01/20 History lamotrigine [Lamictal] 200 mg PO BID 01/16/20 11/01/20 History lorazepam [Ativan] 1 mg PO TID 01/16/20 11/01/20 History methocarbamol 1,000 mg PO TID 01/16/20 11/01/20 History pantoprazole [Protonix] 40 mg PO BID 01/16/20 11/01/20 History pramipexole [Mirapex] 0.125 mg PO HS 01/16/20 11/01/20 History ursodiol 300 mg PO QID 01/16/20 11/01/20 History acetaminophen [Tylenol Extra 1,000 mg PO Q6H PRN 02/11/20 11/01/20 History Strength] diphenhydramine HCl [Benadryl] 25 mg PO Q6H PRN 02/11/20 11/01/20 History meclizine 12.5 mg PO TID PRN 02/11/20 11/01/20 History nitroglycerin 0.4 mg SUBLINGUAL DIRECTED PRN 02/11/20 11/01/20 History ibuprofen 600 mg PO TID 08/23/20 11/01/20 History metoprolol tartrate 12.5 mg PO BID 08/23/20 11/01/20 History sumatriptan succinate [Imitrex 6 mg SUBCUT DAILY PRN 08/23/20 11/01/20 History STATdose Pen] gabapentin 300 mg PO BID 11/01/20 11/01/20 History hydrocodone-acetaminophen See Rx Instructions .ROUTE 11/02/20 Rx .COMPLEX PRN #30 tab tramadol 50 mg PO Q6H PRN #30 tab 11/02/20 Rx Patient History Medical History (Updated 11/01/20 @ 14:22 by MARY Marie) Anxiety > also very nervous about up coming spinal fusion 11/01 Diverticular disease DJD (degenerative joint disease) GERD (gastroesophageal reflux disease) History of surgical site infection AFTER NECK SURGERY FEBRUARY 2020> RESOLVED Hyperlipidemia Hypertension IBS (irritable bowel syndrome) Migraine Mitral regurgitation Mild MR, jet directed centrally per 08/2019 echo Nausea and vomiting after administration of anesthetic agent Osteoarthritis Osteoporosis Primary biliary cirrhosis stage 1, follows with GI (Dr. Brenner/Yvette) Sciatic nerve pain Seroma after procedure FEW DAYS AFTER NECK SUREGERY IN FEBRUARY 2020 Spinal stenosis SVT (supraventricular tachycardia) no recent issues/follows with cardiology (Dr. Starr) Surgical History Fusion of spine L4-S1 decompression/fusion: 08/11/14: Grade view 2, MAC#3 at [facility] H/O cervical discectomy ROM IS LIMITED History of appendectomy History of cholecystectomy History of colonoscopy History of dilatation and curettage History of endoscopic sinus surgery x4 History of esophagogastroduodenoscopy (EGD) History of hysterectomy History of tooth extraction recently in Sep 2020 Family History Father Diabetes Daughter Diabetes Sister Diabetes Brother Diabetes Social History Smoking Status: Never smoker Second Hand Exposure: No; Hx Alcohol Use: Yes Alcohol type: wine Hx Substance Use: No Preferred Language: Azeri Communication Ability: Effective Correctional Casework Specialist Required: No Beliefs That Will Affect Care: None marital status: Current Living Situation: Spouse Feels Safe at Home: Yes Safety Concerns: Feels Safe At This Time Assistive Devices: Walker Review of Systems Review of Systems: ROS per HPI, all other systems reviewed and negative Physical Exam Constitutional: WD/WN, vitals as above Eyes: PERRL, conjunctivae normal, anicteric sclerae ENMT: external ear and nose normal, oropharynx normal Respiratory: normal respiratory effort, lungs clear to auscultation Cardiovascular: Rate/Rhythm: regular rate and regular rhythm Vessels: normal peripheral pulses Extremities: no edema Gastrointestinal (Abdomen): normal bowel sounds, soft, nontender, no hepatosplenomegaly Musculoskeletal: no cyanosis or clubbing, extremities motor strength 5/5 S/ p back surgery, drain in place draining bloody drainage, pedal pushes and pull strong bilaterally Skin: no rashes, warm and dry Neurologic: PERRL, EOMI, accommodation nl, no face palsy, no dysarthria Psychiatric: A+Ox3, euthymic affect Results & Data Results & Data ([facility]) Vital Signs (Past 12 Hours) Vital Signs Temp Pulse Pulse Resp BP Pulse Ox 11/01/20 13:22 91 H 16 116/77 99 11/01/20 12:30 98 H 16 144/87 H 98 11/01/20 11:57 36.9 C 94 H 18 113/75 99 11/01/20 11:27 36.9 C 79 16 128/79 98 11/01/20 10:40 79 16 142/94 H 99 11/01/20 10:30 79 17 147/95 H 100 11/01/20 10:20 97 H 13 124/85 98 11/01/20 10:19 36.0 C L 93 H 13 133/93 99 11/01/20 08:13 36.7 C 87 20 139/98 96
[2020-11-01] MEDS: ceFAZolin 2000MG 2,000 MG/15 ML SYR IV SCH (15:11)
[2020-11-01] MEDS: ursodioL 300 MG CAP PO SCH ×3 (15:11→20:38)
[2020-11-01] MEDS: ASPIRIN 81 MG ECTAB PO SCH (20:39)
[2020-11-01] MEDS: DULoxetine HCL 60 MG CAP PO SCH (20:39)
[2020-11-01] MEDS: PRAMIPEXOLE DIHYDROCHLO 0.25 MG TAB PO SCH (20:40)
[2020-11-01] MEDS: GABAPENTIN 300 MG CAP PO SCH (20:41)
[2020-11-01] MEDS: PANTOprazole 40 MG TAB PO SCH (20:41)
[2020-11-01] MEDS: DOCUSATE SODIUM/SENNA 50/8.6MG TAB PO SCH (20:42)
[2020-11-01] MEDS: lamoTRIgine 100 MG TAB PO SCH (21:05)
[2020-11-01] MEDS: METOPROLOL TARTRATE 25 MG TAB PO SCH (21:05)
[2020-11-02] MEDS: ceFAZolin 2000MG 2,000 MG/15 ML SYR IV SCH (00:16)
[2020-11-02] MEDS: KETOROLAC TROMETHAMINE 15 MG/ML VIAL IV SCH ×2 (01:59→08:38)
[2020-11-02] MEDS: HYDROmorphone INJ 1 MG/ML SYRINGE IV PRN ×2 (03:31→11:47)
[2020-11-02 06:39] LABS: Basophils # (auto) 0.03 K/uL (0-0.2); Basophils % (auto) 0.3 %; Eosinophils # (auto) 0.09 K/uL (0-0.5); Eosinophils % (auto) 0.8 %; Hematocrit (blood only) 36.7 % (37-47); Hemoglobin 11.9 g/dL (12.0-16.0); Immature Granulocytes # (auto) 0.02 K/uL (0.00-0.02); Immature Granulocytes % (auto) 0.2 %; Lymphocytes % (auto) 22.1 %; Mean Corpuscular Hgb Conc 32.4 g/dL (32-36); Mean Corpuscular Volume 95.6 fL (80-100); Mean Platelet Volume 9.9 fL (7.4-10.4); Monocytes # (auto) 0.97 K/uL (0.11-0.59); Monocytes % (auto) 8.9 %; Neutrophils # (auto) 7.33 K/uL (1.4-6.5); Neutrophils % (auto) 67.7 %; Platelet Count 318 K/uL (130-400); RDW Coefficient of Variation 13.8 % (11.5-14.5); RDW Standard Deviation 47.8 fL (36.4-46.3); Red Blood Count 3.84 M/uL (4.2-5.4); White Blood Count 10.84 K/uL (4.8-10.8)
[2020-11-02 07:08] LABS: BUN Creatinine Ratio 15.8 (10-20); Calcium 9.1 mg/dl (8.5-10.1); Creatinine Clr Calc Pharmacy 91.6 ml/min; Est GFR (Non-African American) 83.7; Potassium 3.9 mmol/L (3.5-5.1)
[2020-11-02] MEDS: METOPROLOL TARTRATE 25 MG TAB PO SCH ×2 (08:32→20:24)
[2020-11-02] MEDS: GABAPENTIN 300 MG CAP PO SCH ×2 (08:32→20:25)
[2020-11-02] MEDS: DULoxetine HCL 60 MG CAP PO SCH ×2 (08:32→20:23)
[2020-11-02] MEDS: ursodioL 300 MG CAP PO SCH ×4 (08:32→20:23)
[2020-11-02] MEDS: lamoTRIgine 100 MG TAB PO SCH ×2 (08:32→20:25)
[2020-11-02] MEDS: PANTOprazole 40 MG TAB PO SCH ×2 (08:32→20:25)
[2020-11-02] MEDS: HYDROCODONE/ACETAMOPHEN 5/325MG TAB PO PRN ×2 (08:38→17:39)
--- NOTE | 2020-11-02 09:55 | Orthopedic Progress Note ---
Date of Service November 02, 2020 Assessment & Plan (1) Neurogenic claudication due to lumbar spinal stenosis: Admission and Anticipated Discharge Date Admission Date: November 01, 2020 At this time initiate physical therapy monitor DAVIDSON operatively discharge home in the next few days. Subjective Back pain is controlled leg pain improved Physical Exam Physical Exam: Patient is in the chair at the bedside. Has reasonable strength testing. Appears comfortable. Results & Data ([facility]) Vital Signs (Past 12 Hours) Vital Signs Temp Pulse Resp BP Pulse Ox 11/02/20 07:57 36.7 C 73 17 136/88 96 11/02/20 02:13 36.9 C 75 16 145/90 H 95 11/01/20 22:01 36.9 C 78 16 127/86 95
[2020-11-02] MEDS: POLYETHYLENE (MIRALAX) 17 GM PACK PO SCH ×5 (11:47→23:29)
--- NOTE | 2020-11-02 12:58 | Hospitalist Progress Note ---
Date of Service November 02, 2020 Assessment & Plan (1) Neurogenic claudication due to lumbar spinal stenosis: - POD#1 L3-L4 decompression and fusion, L4-S1 hardware removal by Dr. Spaulding Doing okay overall. Pain control/DVT prophylaxis as per primary team. Continue to work with PT/OT. Hemoglobin at 11.9, continue to monitor daily CBC. (2) Primary biliary cirrhosis: Stable, c/w COMMUNITY MUSIC THERAPIST ursodiol. (3) SVT (supraventricular tachycardia): Rate is controlled, c/w COMMUNITY MUSIC THERAPIST metoprolol (4) Anxiety: -Stable, continue home medications (5) DVT prophylaxis: -TEDs/SCDs as per spine Ortho Thank you for this consultation. We will follow the patient with you during their hospital stay. You can reach a member of the [place] Hospitalist Team 26/03 via pager @ [phone]. Admission and Anticipated Discharge Date Admission Date: November 01, 2020 Subjective Doing okay this morning. Reports currently pain is okay. No further nausea or vomiting. Have been tolerating diet. Has not had a bowel movement yet. Currently on room air. Hemodynamically she is doing fine. Review of Systems Review of Systems: All systems reviewed & are unremarkable except as noted in HPI & below Physical Exam Physical Exam: General: A&Ox3 HENT: NCAT, MMM, EOMI Eyes: PERRLA Neck: Supple, normal range of motion CVS: normal rate and rhythm Resp: b/l good breath sounds Abdomen: Soft, ND/NT, +BS Extremities: absence of any edema Neuro: no focal deficits Skin: warm and dry MSK: normal ROM, no joint swelling/erythema leach catheter in place Results & Data Results & Data ([facility]) Vital Signs (Past 12 Hours) Vital Signs Temp Pulse Resp BP Pulse Ox 11/02/20 07:57 36.7 C 73 17 136/88 96 11/02/20 02:13 36.9 C 75 16 145/90 H 95
[2020-11-02] MEDS: LORazepam 1 MG TAB PO SCH ×2 (13:46→20:32)
[2020-11-02] MEDS: PRAMIPEXOLE DIHYDROCHLO 0.25 MG TAB PO SCH (20:22)
[2020-11-02] MEDS: ASPIRIN 81 MG ECTAB PO SCH (20:23)
[2020-11-02] MEDS: DOCUSATE SODIUM/SENNA 50/8.6MG TAB PO SCH (20:23)
[2020-11-03] MEDS: POLYETHYLENE (MIRALAX) 17 GM PACK PO SCH ×4 (05:37→21:50)
[2020-11-03] MEDS: HYDROCODONE/ACETAMOPHEN 5/325MG TAB PO PRN ×3 (05:40→20:01)
[2020-11-03] MEDS: HYDROmorphone INJ 1 MG/ML SYRINGE IV PRN (07:32)
[2020-11-03] MEDS: PANTOprazole 40 MG TAB PO SCH ×2 (09:11→20:40)
[2020-11-03] MEDS: lamoTRIgine 100 MG TAB PO SCH ×2 (09:11→20:46)
[2020-11-03] MEDS: GABAPENTIN 300 MG CAP PO SCH ×2 (09:11→20:41)
[2020-11-03] MEDS: METOPROLOL TARTRATE 25 MG TAB PO SCH ×2 (09:11→20:42)
[2020-11-03] MEDS: LORazepam 1 MG TAB PO SCH ×3 (09:11→21:14)
[2020-11-03] MEDS: DULoxetine HCL 60 MG CAP PO SCH ×2 (09:12→20:46)
[2020-11-03] MEDS: ursodioL 300 MG CAP PO SCH ×4 (09:12→20:47)
[2020-11-03] MEDS ORDERED: bisacodyL 10 MG SUPP PR PRN (10:05)
--- NOTE | 2020-11-03 11:09 | Hospitalist Progress Note ---
Date of Service November 03, 2020 Assessment & Plan (1) Neurogenic claudication due to lumbar spinal stenosis: - POD#2 L3-L4 decompression and fusion, L4-S1 hardware removal by Dr. Spaulding Resume Post Op Care per Surgery Protocol Incentive Spirometry 10x per Hour Resume Relative Home Meds Where Appropriate PT/OT with appropriate fall precautions Transition from IV to PO Pain control DVT Prophylaxis Per Surgery Protocol Monitor Daily Labs Hemoglobin at 11.9, continue to monitor daily CBC. 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 (3) SVT (supraventricular tachycardia): Rate is controlled, c/w BOILER PLANT WORKER metoprolol (4) Anxiety: -Stable, continue home medications (5) DVT prophylaxis: -TEDs/SCDs as per spine Ortho Labs checked ROS-No Headache, No Visual Changes, No Nausea, No Vomiting, No Fever, No Chills, No Neck Pain or Stiffness, No Chest Pain, No Palpitations, No SOB, No GONZALEZ, No Cough, No Sputum, No Wheezing, No Abdominal Pain, No Diarrhea, No Hematemesis, No Hemoptysis, No Unexpected Weight Loss, No Flank pain, No Melena, No Hematochezia, No Frequency, No Urgency, No Burning, No Hematuria, No Rashes, No Diaphoresis. Appetite is Normal, complains of back and leg spasms, pain down legs gone Physical Exam Gen-AAO x 3, NAD, Afebrile Head-NCAT, EOMI, PERRLA, Anicteric Sclera, No Posterior Pharyngeal Erythema Neck-Supple, No JVD, No Thyromegaly, No Masses, No LAD, No Bruits Lungs-Clear to Auscultation Bilaterally, No Rales, No Rhonchi, No Wheezing, No Crepitus Chest-No S4, +S1, +S2, No S3, No Murmurs, No Rubs, No Gallops, No Ectopy Abdomen-Soft, Bowel Sounds Present, Non Tender, Non Distended, No Hepatomegaly, No Splenomegaly, No Palpable Masses, No Rebound, No Rigidity, No Guarding Musculoskeletal-Full Range of Motion Bilaterally, No CVAT Extremities-No Cyanosis, No Clubbing, No Edema Nuero-Cranial Nerves II-XII grossly intact, Motor WNL, DTRs WNL, Strength WNL, Non Focal Psych-Normal Mood Admission and Anticipated Discharge Date Admission Date: November 01, 2020 Results & Data Results & Data ([facility]) Vital Signs (Past 12 Hours) Vital Signs Temp Pulse Resp BP Pulse Ox 11/03/20 07:27 36.6 C 84 16 113/74 97 11/03/20 03:33 36.6 C 79 14 154/81 H 96
--- NOTE | 2020-11-03 13:02 | Orthopedic Progress Note ---
Date of Service November 03, 2020 Assessment & Plan (1) Neurogenic claudication due to lumbar spinal stenosis: Admission and Anticipated Discharge Date Admission Date: November 01, 2020 This time we will continue physical therapy monitor DAVIDSON operatively discharge home tomorrow. Subjective Back pain controlled leg symptoms improved. Physical Exam Physical Exam: Patient is good strength testing appears comfortable. Results & Data ([facility]) Vital Signs (Past 12 Hours) Vital Signs Temp Pulse Resp BP Pulse Ox 11/03/20 07:27 36.6 C 84 16 113/74 97 11/03/20 03:33 36.6 C 79 14 154/81 H 96
[2020-11-03] MEDS: DOCUSATE SODIUM/SENNA 50/8.6MG TAB PO SCH (20:40)
[2020-11-03] MEDS: PRAMIPEXOLE DIHYDROCHLO 0.25 MG TAB PO SCH (20:41)
[2020-11-03] MEDS: ASPIRIN 81 MG ECTAB PO SCH (20:46)
[2020-11-04] MEDS: HYDROCODONE/ACETAMOPHEN 5/325MG TAB PO PRN ×3 (01:32→10:53)
[2020-11-04] MEDS: POLYETHYLENE (MIRALAX) 17 GM PACK PO SCH (06:03)
[2020-11-04 06:06] LABS: Hematocrit (blood only) 36.7 % (37-47); Mean Corpuscular Hemoglobin 31.3 pg (25-34); Mean Corpuscular Hgb Conc 32.7 g/dL (32-36); Mean Corpuscular Volume 95.8 fL (80-100); Platelet Count 293 K/uL (130-400); RDW Coefficient of Variation 13.8 % (11.5-14.5); RDW Standard Deviation 48.8 fL (36.4-46.3); Red Blood Count 3.83 M/uL (4.2-5.4)
[2020-11-04 06:35] LABS: BUN Creatinine Ratio 12.2 (10-20); Calcium 9.1 mg/dl (8.5-10.1); Creatinine Clr Calc Pharmacy 77.8 ml/min; Est GFR (African American) 79.6; Est GFR (Non-African American) 68.7; Potassium 4.4 mmol/L (3.5-5.1)
--- NOTE | 2020-11-04 07:19 | Hospitalist Progress Note ---
Date of Service November 04, 2020 Assessment & Plan (1) Neurogenic claudication due to lumbar spinal stenosis: - POD#3 L3-L4 decompression and fusion, L4-S1 hardware removal by Dr. Spaulding Resume Post Op Care per Surgery Protocol Incentive Spirometry 10x per Hour Resume Relative Home Meds Where Appropriate PT/OT with appropriate fall precautions Transition to PO Pain control DVT Prophylaxis Per Surgery Protocol Monitor Daily Labs Hemoglobin at 12, DC from IM standpoint. (2) Primary biliary cirrhosis: Stable, c/w X RAY NURSE ursodiol. (3) SVT (supraventricular tachycardia): Rate is controlled, c/w X RAY NURSE metoprolol (4) Anxiety: -Stable, continue home medications (5) DVT prophylaxis: -TEDs/SCDs as per spine Ortho Labs checked, Hb up today ROS-No Headache, No Visual Changes, No Nausea, No Vomiting, No Fever, No Chills, No Neck Pain or Stiffness, No Chest Pain, No Palpitations, No SOB, No GONZALEZ, No Cough, No Sputum, No Wheezing, No Abdominal Pain, No Diarrhea, No Hematemesis, No Hemoptysis, No Unexpected Weight Loss, No Flank pain, No Melena, No Hematochezia, No Frequency, No Urgency, No Burning, No Hematuria, No Rashes, No Diaphoresis. Appetite is Normal, Mild back and leg spasms, pain down legs gone Physical Exam Gen-AAO x 3, NAD, Afebrile Head-NCAT, EOMI, PERRLA, Anicteric Sclera, No Posterior Pharyngeal Erythema Neck-Supple, No JVD, No Thyromegaly, No Masses, No LAD, No Bruits Lungs-Clear to Auscultation Bilaterally, No Rales, No Rhonchi, No Wheezing, No Crepitus Chest-No S4, +S1, +S2, No S3, No Murmurs, No Rubs, No Gallops, No Ectopy Abdomen-Soft, Bowel Sounds Present, Non Tender, Non Distended, No Hepatomegaly, No Splenomegaly, No Palpable Masses, No Rebound, No Rigidity, No Guarding Musculoskeletal-Full Range of Motion Bilaterally, No CVAT Extremities-No Cyanosis, No Clubbing, No Edema Nuero-Cranial Nerves II-XII grossly intact, Motor WNL, DTRs WNL, Strength WNL, Non Focal Psych-Normal Mood Admission and Anticipated Discharge Date Admission Date: November 01, 2020 Results & Data Results & Data ([facility]) Vital Signs (Past 12 Hours) Vital Signs Temp Pulse Resp BP Pulse Ox 11/03/20 21:56 37.1 C 89 14 144/89 H 97 11/03/20 20:45 36.9 C 91 H 14 144/93 H 97
--- NOTE | 2020-11-04 08:32 | Discharge Summary ---
Date of Service November 04, 2020 Admission HPI Per Admitting Provider This is a 55-year-old female who presents with car persistent back and leg pain. After failing course of nonoperative care is here for surgical invention. Principal Diagnosis Lumbar spinal stenosis with neurogenic claudication Discharge Data Allergies Allergy/AdvReac Type Severity Reaction Status Date / Time acetaminophen [From Percocet] Allergy Intermediate Rash Verified 11/01/20 08:02 dexamethasone Allergy Intermediate Hypertensio Verified 11/01/20 08:02 n oxycodone [From Percocet] Allergy Intermediate Rash Verified 11/01/20 08:02 metaxalone Allergy Mild Rash Verified 11/01/20 08:02 adhesive Allergy Unknown Itchy rash Verified 11/01/20 08:02 tetracycline Allergy Unknown Rash Verified 11/01/20 08:02 latex Allergy Rash Verified 11/01/20 08:02 pregabalin AdvReac Intermediate Hallucinati Verified 11/01/20 08:02 ons Consultations 11/01/20 11:27 Consult Case Management - Discharge Planning Routine Consult Hospitalist Routine Procedures Performed Operation Date: 11/01/20 07:45 Actual Procedures p L3-4 Decompression and Fusion, Spinal Cord Monitoring - Nicola Spaulding DO s L4-S1 Hardware Removal, - Nicola Spaulding DO Ordered Studies 11/01/20 07:45 FL fluoroscopy <1hr Routine FL lumbar spine 2-3V Routine Hospital Course (1) Neurogenic claudication due to lumbar spinal stenosis: Patient went lumbar decompression fusion tolerated so was taken to orthopedic floor postoperatively postop day 1 she was up and ambulating briskly postop day or 2 on postop day #3 pain controlled excellent strength testing DAVIDSON drain decreasing probably. Subsequent discharge home. Discharge orders instructions from the chart for further review. Total Time Total Time Spent Total Time Spent (In Minutes): 20 minutes Discharge Plan Discharge Items Patient Disposition: Home - Self-Care Reason For Visit: SPINAL STENOSIS, LUMBAR REGION WITHOUT NEURGENIC Discharge Diagnosis: Lumbar spinal stenosis with neurogenic claudication Activity: As commented below Non-emergency contact: Primary Care Provider Call non-emergency contact if: you have any medication questions Follow-up/Referrals: Nicola Carroll DO [Primary Care Provider] - Diet: Regular Addtl Attending Provider Instructions: ACTIVITY RECOMMENDATIONS: SELF CARE INSTRUCTIONS AFTER THORACIC/LUMBAR FUSIONS 1. You may walk to your tolerance. It is good exercise for your legs and back. Expect some back and intermittent leg aches and pains. 2. You may perform "counter-top" level activities (make a sandwich, radha with a project, etc.). 3. No bending or lifting of more than 10 pounds or back twisting of any nature (roll like a log when turning in bed). 4. You may ride in a car for 20-30 minutes at a time. No driving until after your first visit with your doctor. 5. Frequent changes of position and restricting sitting to 30 minutes at a time will help limit the amount of back spasms and stiffness you may experience. 6. You may discontinue the use of ambulatory aids (cane, crutches, etc.) once your strength and confidence allow. 7. You may machine cementer the shower and let water strike your incision when you arrive home at least once daily. Do not take a tub bath, sit in a hot tub or go into a swimming pool until after your first recheck in the office. SPECIAL CARE INSTRUCTIONS: VERY IMPORTANT TO READ AND REVIEW A. Your surgical incision has been closed with a cosmetic suture under the skin that will dissolve in about 6 weeks. In 14 days, you can use a pair of clean scissors and cut the suture that is left outside of the skin at the ends of your incision. 1. The small skin tapes can be removed 7 days after surgery if they have not fallen off by that point. 2. You may keep the wound open to air as much as possible to promote healing after post-op day number 5 unless told otherwise by your doctor. 3. If you think the wound looks like it is becoming infected (redness or worsening drainage) and/or you are experiencing fever, chill or worsening back pain and muscle spasms, contact the office so that we may evaluate you as soon as possible. B. Complications are uncommon, but please contact us if you have any signs or symptoms of: 1. wound infection (fever higher than 102.5 degrees F, redness, separation of wound, drainage, or increasing pain from the incision) 2. blood clots in legs (pain, swelling, redness and warmth in legs) 3. urinary tract infection (fever higher than 102.5 degrees F, burning upon urination or increased frequency of urination) 4. nerve problems (inability to walk on your toes or heels, numbness, loss of bowel or bladder control) 5. any other symptoms that concern you C. Please call the office at if you have any concerns or quest ions about your operation or recovery. D. No smoking! Smoking drastically decreases the chance of a solid fusion. E. Do not take any anti-inflammatory medications (Indocin, Advil, Motrin, Aspirin, Naprosyn, etc.) as these may inhibit the chance of a solid fusion. Tylenol is okay to take for pain. MANAGING PAIN AFTER SPINAL SURGERY 1. Narcotic medication is intended for short-term use and will be provided for surgical pain. Surgical pain usually lasts for a period of 4-6 weeks. Narcotic medication includes Percocet, Vicodin, Darvocet, Tylenol #3 or Lortab. 2. Longer-term pain is more appropriately treated with non-narcotic medication such as Tylenol ES. 3. Muscle spasm is not appropriately treated with narcotics. Muscle relaxers such as Soma, Flexeril or Skelaxin can be used along with Tylenol ES. 4. Remember that we all live with some "aches and pains". This is not unusual or uncommon after an injury or as we get older. a. Back pain is expected and may include muscle spasms for 4 to 6 weeks after surgery. The pain should gradually improve. If the pain worsens for no apparent reason, please contact the office. b. Intermittent leg pain may also be experienced and should not be concerned about unless it worsens for no apparent reason. If so, please contact the office. 5. We will provide appropriate medication within the normal guidelines of their prescribed use. We will also be very cautious and aware of potential abuse and extended duration of patients' medication needs. a. Pain medications are for your comfort and to assist with sleep and rest so that the tissue can heal. They are not provided in order to return to normal activity and should not be used through the day. To do so or worsening pain at night can result from ongoing tissue damage and development of tolerance to the prescribed medicine. 6. Please allow 2-3 days to process refills. Prescriptions will not be mailed but must be picked up at the office. FOLLOW UP VISIT: Keep your scheduled follow-up appointment. Any questions, please call the office at . Pending Studies at Discharge: No Stand-Alone Forms: My [facility], Smoking Cessation Medications and DC Order Prescriptions: New hydrocodone-acetaminophen 5-325 mg tablet See Rx Instructions .ROUTE .COMPLEX PRN (Reason: pain) Qty: 30 RF: 0 tramadol 50 mg tablet 50 mg PO Q6H PRN (Reason: pain, moderate) Qty: 30 RF: 0 Continued methocarbamol 500 mg Tablet 1,000 mg PO TID RF: 0 lamotrigine [Lamictal] 200 mg Tablet 200 mg PO BID RF: 0 aspirin [Aspir-81] 81 mg Tablet,Delayed Release (Dr/Ec) 81 mg PO PM RF: 0 dicyclomine 20 mg Tablet 20 mg PO TID PRN (Reason: Abdominal Pain) RF: 0 pantoprazole [Protonix] 40 mg Tablet,Delayed Release (Dr/Ec) 40 mg PO BID RF: 0 pramipexole [Mirapex] 0.125 mg Tablet 0.125 mg PO HS RF: 0 lorazepam [Ativan] 1 mg Tablet 1 mg PO TID RF: 0 duloxetine [Cymbalta] 60 mg Capsule,Delayed Release(Dr/Ec) 60 mg PO BID RF: 0 zxxynrscgs-qvtefsr-ljssjjqo [Fiorinal] 50-325-40 mg Capsule 1 cap PO Q6H PRN (Reason: Migraine Headache) RF: 0 ursodiol 300 mg Capsule 300 mg PO QID RF: 0 acetaminophen [Tylenol Extra Strength] 500 mg Tablet 1,000 mg PO Q6H PRN (Reason: Pain) RF: 0 meclizine 25 mg tablet 12.5 mg PO TID PRN (Reason: Dizziness) RF: 0 diphenhydramine HCl [Benadryl] 25 mg Capsule 25 mg PO Q6H PRN (Reason: Allergic Reaction) RF: 0 nitroglycerin 0.4 mg Tablet, Sublingual 0.4 mg sublingual DIRECTED PRN (Reason: Chest Pain) RF: 0 metoprolol tartrate 25 mg Tablet 12.5 mg PO BID RF: 0 ibuprofen 600 mg Tablet 600 mg PO TID RF: 0 sumatriptan succinate [Imitrex STATdose Pen] 6 mg/0.5 mL Pen Injector 6 mg SUBCUT DAILY PRN (Reason: Migraine Headache) RF: 0 Changed gabapentin 300 mg capsule 300 mg PO TID Qty: 0 RF: 0 Discharge Orders: Discharge Order (Routine); Ordered 11/04/20 Ordered By: Nicola Spaulding Admission Data Admit Date/Time: 11/01/20 10:38 Attending Provider: Nicola Spaulding Admit Provider: Nicola Spaulding Primary Care Provider: Nicola Carroll Other Providers: Rei Khan
[2020-11-04] MEDS: ursodioL 300 MG CAP PO SCH (08:44)
[2020-11-04] MEDS: LORazepam 1 MG TAB PO SCH (08:44)
[2020-11-04] MEDS: DULoxetine HCL 60 MG CAP PO SCH (08:44)
[2020-11-04] MEDS: lamoTRIgine 100 MG TAB PO SCH (08:45)
[2020-11-04] MEDS: METOPROLOL TARTRATE 25 MG TAB PO SCH (08:45)
[2020-11-04] MEDS: GABAPENTIN 300 MG CAP PO SCH (08:45)
[2020-11-04] MEDS: PANTOprazole 40 MG TAB PO SCH (08:46)
== END 2020-11-04 11:17 | disposition home or self-care (01) ==
LOC: ASU 06:01 → 3E 10:38